=== PATIENT | female | born 1945 | race Caucasian/White ===

== ENCOUNTER 2017-10-14 11:23 | Emergency (ER) | payer MEDICARE, BC ==
[~2017-10-14] VITALS: Ht 170.2 cm; Wt 81.4 kg
[2017-10-14 11:28] VITALS: BP 112/64; TEMP 98.7
[2017-10-14] MEDS ORDERED: SYNTHROID0.05 MG/TA PO (11:54)
[2017-10-14] MEDS ORDERED: PROTONIX40 MG/Pack PO (11:55)
[2017-10-14] MEDS ORDERED: NORCO 325 MG-51 TAB PO (11:55)
[2017-10-14] MEDS ORDERED: VITAMIND3 5000 PO (11:56)
[2017-10-14] MEDS ORDERED: FLEXERIL 1010 MG/TAB PO (11:56)
[2017-10-14 12:57] VITALS: PULSE 80
== END 2017-10-14 12:57 | disposition home or self-care (01) ==
LOC: COL.ER 11:23
DX: M79.605 Pain in left leg (principal)

== ENCOUNTER 2017-10-16 08:44 | Emergency (ER) | payer MEDICARE, BC ==
[~2017-10-16] VITALS: Ht 170.2 cm; Wt 80.9 kg
[~2017-10-16 08:44] MED LIST: FLEXERIL 1010 MG/TAB PO; NORCO 325 MG-51 TAB PO; PROTONIX40 MG/Pack PO; SYNTHROID0.05 MG/TA PO; VITAMIND3 5000 PO
[2017-10-16 08:47] VITALS: BP 117/66; PULSE 82; TEMP 98.4
[2017-10-16 09:55] LABS: BASO % 0.7 % (0.0-2.0); EOS # 0.1 (0.0-0.7); EOS % 2.3 % (0-4.0); GRAN # 2.7 (1.4-6.5); GRAN % 62.1 % (42.2-75.2); LYMPH # 1.1 (1.2-3.4); LYMPH % 25.2 % (20.0-51.0); MEAN CELL VOLUME 98 fl (80.0-100.0); MEAN CORPUSCULAR HEMOGLOBIN 32 pg (27.0-31.0); MEAN CORPUSCULAR HGB CONC 33 g/dl (33.0-37.0); MEAN PLATELET VOLUME 10.5 fl (7.4-10.4); MONO # 0.4 (0.1-0.6); MONO % 9.5 % (1.7-9.3); PLATELET COUNT 160 K/mm3 (130-400); RED BLOOD COUNT 3.76 M/mm3 (4.10-5.30); REDCELL DISTRIBUTION WIDTH-CV 12.9 % (11.5-14.5)
[2017-10-16 09:58] LABS: HEMATOCRIT 36.8 % (37.0-47.0)
== END 2017-10-16 12:51 | disposition home or self-care (01) ==
LOC: COL.ER 08:44
PROVIDERS: Nurse Practitioner Primary Care
DX: I82.811 Embolism and thrombosis of superficial veins of right lower extremity (principal); M79.661 Pain in right lower leg; K21.9 Gastro-esophageal reflux disease without esophagitis; E03.9 Hypothyroidism, unspecified; Z98.51 Tubal ligation status; Z98.890 Other specified postprocedural states